=== PATIENT | male | born 1940 | race Caucasian/White ===

== ENCOUNTER 2017-02-26 13:26 | Emergency (ER) | payer MEDICARE ==
[2017-02-26 14:17] LABS: ALT (SGPT) 22 U/L (8-55); AST (SGOT) 20 U/L (5-34); Albumin 4.1 g/dL (3.4-4.8); Alkaline Phosphatase 98 U/L (40-150); Anion Gap 18 mmol/L (10-20); BUN (Urea Nitrogen) 28 mg/dL (8.4-25.7); Bilirubin, Total 0.7 mg/dL (0.2-1.2); Calc. Creatinine Clearance 0 mL/min (70-130); Calcium 9.2 mg/dL (7.8-10.44); Carbon Dioxide 24 mmol/L (23-31); Chloride 97 mmol/L (98-107); Estimated GFR-MDRD 44; Globulin 3.2 g/dL (2.4-3.5); Glucose 155 mg/dL (83-110); Potassium 4.3 mmol/L (3.5-5.1); Protein, Total 7.3 g/dL (5.8-8.1); Sodium 135 mmol/L (136-145)
[2017-02-26 14:18] LABS: Bilirubin Negative (Negative); Blood, Urine Trace (Negative); Clarity Clear (Clear); Glucose, Urine (Dipstick) Negative (Negative); Leukocyte Trace (Negative); Nitrite Negative (Negative); Protein, Urine (Dipstick) Negative (Neg-Trace); Urobilinogen 0.2 mg/dL (0.2-1.0)
[2017-02-26 14:19] LABS: Specific Gravity, Urine 1.008 (1.005-1.030)
[2017-02-26 14:21] LABS: Bacteria/HPF Rare-Few HPF (None Seen); RBC/HPF 0-3 HPF (0-3); Squamous Epithelial 0-3 HPF (0-3); WBC/HPF 0-3 HPF (0-3)
[2017-02-26 14:25] LABS: #Basophils 0.1 thou/uL (0.0-0.2); #Eosinphils 0.3 thou/uL (0.0-0.7); #Lymphocytes 2.1 thou/uL (1.20-3.40); #Monocytes 0.5 thou/uL (0.11-0.59); %Basophils 1.3 % (0.0-1.0); %Eosinophils 2.6 % (0.0-10.0); %Lymphocytes 18.7 % (21.0-51.0); %Monocytes 4.8 % (0.0-10.0); %Neutrophils 72.6 % (42.0-75.0); Hemoglobin 14.8 g/dL (14.0-18.0); Mean Corpuscular HGB CONC 36.1 g/dL (32.0-36.0); Mean Corpuscular Hemoglobin 34.1 pg (27.0-31.0); Mean Corpuscular Volume 94.6 fl (80.0-94.0); Mean Platelet Volume 7.1 fL (7.4-10.4); Platelet Count 152 thou/uL (130-400); RBC Distribution Width 11.5 % (11.5-14.5); Red Blood Cell (RBC) Count 4.33 mill/uL (4.70-6.10)
[2017-02-26 14:29] LABS: Manual Diff?? NO
[2017-02-26 14:30] LABS: MDiff Complete? YES
[2017-02-26] MEDS ORDERED: Ondansetron HCl/PF 4 MG/2 ML Vial ONE (14:32)
[2017-02-26] MEDS ORDERED: cefTRIAXone\\ROCEPHIN 1 GM VIAL ONE (14:32)
[2017-02-26] MEDS ORDERED: Fentanyl 100 MCG/2 ML VIAL ONE ×2 (14:32→15:26)
--- NOTE | 2017-02-26 21:46 | CT ---
CT ABDOMEN AND PELVIS WITHOUT CONTRAST: Date: 02-27-[address] of the abdomen and pelvis was performed for evaluation of right flank pain. Axial images we re acquired then coronal reconstructions were done. Comparison: 01-12-15 FINDINGS: The lung bases are clear. There might be some minimal lingular scarring on the first slice. The liver has several subcentimeter hypodensities in it, probably cysts. They were present before and are no different. The gallbladder is large measuring about 12 cm in length and contains gallstones. Interestingly, this is no different than the 2015 appearance. The spleen, pancreas, adrenal glands an d abdominal aorta showed no acute findings within the limitations of a noncontrast study. Severe right hydronephrosis is present with dilation of the ureter down to about the upper sacral lev el where one sees a 4 mm calculus causing obstruction. There is abundant right perinephric stranding indicating a high degree of obstruction that has been present. Nonobstructing calculi are seen in thi s kidney as well. The left kidney also shows severe hydronephrosis and severe left hydroureter all th e way down to the bladder. I cannot define a calculus on this side as a cause. Nor is there is signif icant perinephric stranding around the left kidney. There are two rounded masses associated with the left kidney, one in the upper pole and one in the lower. The one in the upper pole is a little hyperd ense. Both are most likely cysts. They were present in 2015 and have not changed substantially. Nonob structing calculi are seen in this kidney. CT of the pelvis showed the urinary bladder to be contracted but very thick walled. I cannot exclude pathology within it, though it was rather thick walled before. A diverticulosis without convincing di verticulitis was seen. The inflammatory perinephric stranding seen on the right extends substantially down towards the pelvis. An incidental finding on the study was a small fat filled umbilical hernia. There is substantial degenerative changes in the spine. IMPRESSION: 1. Severe right hydronephrosis due to a 4 mm ureteral calculus at the upper sacral level. There is se shannon perinephric stranding around and below this kidney suggesting a high grade of obstruction. 2. Severe left hydronephrosis and left hydroureter all the way down to the left UVJ. I do not see ure teral calculi on this side. This is a new finding compared to 2015 and the cause for obstruction is n ot apparent. 3. Bilateral nonobstructing renal calculi. 4. Presumed left renal cysts, substantially unchanged from 2015. 5. Contracted thick walled urinary bladder. Cannot rule out pathology here. 6. Large gallbladder containing gallstones, but the appearance is not much different than on the 2015 scan. Findings called to Dr. Cantu at 1425 on 02-26-17. POS: HOME
== END 2017-02-26 15:41 | disposition short-term general hospital (02) ==
LOC: BURERS 13:26
DX: N13.2 Hydronephrosis with renal and ureteral calculous obstruction (principal); G40.909 Epilepsy, unspecified, not intractable, without status epilepticus; I25.10 Atherosclerotic heart disease of native coronary artery without angina pectoris; I12.9 Hypertensive chronic kidney disease with stage 1 through stage 4 chronic kidney disease, or unspecified chronic kidney disease; N18.9 Chronic kidney disease, unspecified; I48.91 Unspecified atrial fibrillation; F31.9 Bipolar disorder, unspecified; F17.210 Nicotine dependence, cigarettes, uncomplicated; Z86.73 Personal history of transient ischemic attack (TIA), and cerebral infarction without residual deficits
CPT/HCPCS: 36415; 74176; 80053; 81003; 81015; 85025; 87040; 96374; 96375; 96376; J0696; J2405; J3010

== ENCOUNTER 2017-03-29 11:11 | Emergency (ER) | payer MEDICARE ==
[2017-03-29 11:59] LABS: Bilirubin Negative (Negative); Blood, Urine Negative (Negative); Clarity Clear (Clear); Glucose, Urine (Dipstick) Negative (Negative); Leukocyte Negative (Negative); Nitrite Negative (Negative); Protein, Urine (Dipstick) Negative (Neg-Trace); Urobilinogen 0.2 mg/dL (0.2-1.0); pH, Urine 5.5 (5.0-9.0)
--- NOTE | 2017-03-29 20:20 | RAD ---
LEFT HIP TWO VIEWS 03/29/17 No fracture, dislocation, or joint space narrowing was seen. There is no area of bony destruction. Th e adjacent pubic ring appears intact. The SI joints were symmetrical. IMPRESSION: No acute findings. POS: HOME
== END 2017-03-29 12:35 | disposition home or self-care (01) ==
LOC: BURERS 11:11
DX: M70.62 Trochanteric bursitis, left hip (principal); G40.909 Epilepsy, unspecified, not intractable, without status epilepticus; I48.91 Unspecified atrial fibrillation; I25.2 Old myocardial infarction; Z86.73 Personal history of transient ischemic attack (TIA), and cerebral infarction without residual deficits; I12.9 Hypertensive chronic kidney disease with stage 1 through stage 4 chronic kidney disease, or unspecified chronic kidney disease; N18.9 Chronic kidney disease, unspecified; F31.9 Bipolar disorder, unspecified; F17.210 Nicotine dependence, cigarettes, uncomplicated
CPT/HCPCS: 81003

== ENCOUNTER 2017-04-10 13:00 | Emergency (ER) | payer MEDICARE ==
[2017-04-10] MEDS ORDERED: Morphine 4 MG/ML Carpuject ONE (13:20)
== END 2017-04-10 14:35 | disposition home or self-care (01) ==
LOC: BURERS 13:00
DX: M54.42 Lumbago with sciatica, left side (principal); I12.0 Hypertensive chronic kidney disease with stage 5 chronic kidney disease or end stage renal disease; G40.909 Epilepsy, unspecified, not intractable, without status epilepticus; J32.9 Chronic sinusitis, unspecified; I48.91 Unspecified atrial fibrillation; I25.2 Old myocardial infarction; R73.03 Prediabetes; N18.9 Chronic kidney disease, unspecified; I44.7 Left bundle-branch block, unspecified; J42 Unspecified chronic bronchitis; Z86.73 Personal history of transient ischemic attack (TIA), and cerebral infarction without residual deficits; Z87.891 Personal history of nicotine dependence
CPT/HCPCS: 96372; J2270